=== PATIENT | female | born 1990 | race African-American/Black ===

== ENCOUNTER 2017-12-07 19:13 | Emergency (ER) | payer SELFPAY ==
[~2017-12-07] VITALS: Ht 167.6 cm; Wt 72.6 kg
[~2017-12-07 19:13] MED LIST: CEPHALEXIN500 MG ORAL; NORCO 5-325 TA1 EACH ORAL
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
[2017-12-07] MEDS ORDERED: LORazepam 20 MG in NS 90 ML IV ONE (20:15)
[2017-12-07] MEDS ORDERED: LORazepam Inj 2mg/ml 1ml IM ONE (20:30)
[2017-12-07 21:03] LABS: BASOPHILS % (AUTO) 0.8 % (0.0-2.0); EOSINOPHILS % (AUTO) 1.2 % (0.0-3.0); HEMATOCRIT 42.4 % (37.0-47.0); HEMOGLOBIN 13.8 G/DL (12.0-16.0); LYMPHOCYTES % (AUTO) 26.6 % (20.0-45.0); MEAN CORPUSCULAR VOLUME 89 FL (80-99); MONOCYTES % (AUTO) 4.5 % (1.0-10.0); NEUTROPHILS % (AUTO) 66.9 % (45.0-75.0); PLATELET COUNT 281 K/UL (150-450); RED BLOOD COUNT 4.76 M/UL (4.20-5.40); RED CELL DISTRIBUTION WIDTH 12.9 % (11.6-14.8)
[2017-12-07 21:15] LABS: ANION GAP 9 mmol/L (5-15); BLOOD UREA NITROGEN 9 mg/dL (7-18); CALCIUM 9.4 MG/DL (8.5-10.1); CARBON DIOXIDE 27 MMOL/L (21-32); CHLORIDE 102 MMOL/L (98-107); CREATININE 0.7 MG/DL (0.55-1.30); POTASSIUM 3.5 MMOL/L (3.5-5.1); SODIUM 138 MMOL/L (136-145)
[2017-12-07 21:20] LABS: ALANINE AMINOTRANSFERASE 35 U/L (12-78); ALBUMIN 3.9 G/DL (3.4-5.0); ALBUMIN/GLOBULIN RATIO 1.1 (1.0-2.7); ALKALINE PHOSPHATASE 60 U/L (46-116); ASPARTATE AMINO TRANSFERASE 40 U/L (15-37); BILIRUBIN,TOTAL 0.3 MG/DL (0.2-1.0)
[2017-12-07 21:54] VITALS: BP 130/80
== END 2017-12-07 22:21 | disposition home or self-care (01) ==
LOC: EDBD 19:13 → EMR 19:35
DX: F91.9 Conduct disorder, unspecified (principal); M79.671 Pain in right foot
CPT/HCPCS: 36415; 80053; 80307; 81025; 85025; 99282; G0480; 80329